=== PATIENT | female | born 1985 | race Caucasian/White ===

== ENCOUNTER → 2021-04-13 | Outpatient (CLI) | payer OTHER | LOC: KOH-I 09:48 | DX: R56.9 Unspecified convulsions (principal); R94.02 Abnormal brain scan | CPT/HCPCS: 70450 ==

== ENCOUNTER → 2021-05-28 | Outpatient (CLI) | payer OTHER | LOC: KOH-I 04-22 11:15 | DX: R56.9 Unspecified convulsions (principal) | CPT/HCPCS: 70551 ==